=== PATIENT | male | born 1945 | race Caucasian/White ===

== ENCOUNTER 2018-08-18 11:57 | Inpatient (IN) | payer MEDICARE, OTHER ==
[~2018-08-18 11:57] MED LIST: ISOVUE-370 76%-LOCM 1 ML ONE
[2018-08-18 12:44] LABS: #Eosinphils 0.2 thou/uL (0.0-0.7); #Lymphocytes 1.6 thou/uL (1.20-3.40); #Monocytes 0.7 thou/uL (0.11-0.59); #Neutrophils 7.2 thou/uL (1.40-6.50); %Basophils 0.2 % (0.0-1.0); %Eosinophils 2.2 % (0.0-10.0); %Lymphocytes 16.4 % (21.0-51.0); %Monocytes 7.3 % (0.0-10.0); %Neutrophils 73.9 % (42.0-75.0); Mean Corpuscular HGB CONC 33.2 g/dL (32.0-36.0); Mean Corpuscular Hemoglobin 32.8 pg (27.0-31.0); Mean Corpuscular Volume 98.9 fL (78.0-98.0); Mean Platelet Volume 6.5 fL (7.4-10.4); Platelet Count 281 thou/uL (130-400); RBC Distribution Width 11.7 % (11.5-14.5); Red Blood Cell (RBC) Count 4.27 mill/uL (4.70-6.10); White Blood Cell (WBC) Count 9.7 thou/uL (4.8-10.8)
[2018-08-18 12:53] LABS: PTT 36.6 SEC (22.9-36.1); Prothrombin Time 13.2 SEC (12.0-14.7)
[2018-08-18 13:04] LABS: ALT (SGPT) Less than 7 U/L (8-55); AST (SGOT) 8 U/L (5-34); Albumin 3.8 g/dL (3.4-4.8); Alkaline Phosphatase 83 U/L (40-150); Anion Gap 11 mmol/L (10-20); BUN (Urea Nitrogen) 15 mg/dL (8.4-25.7); Bilirubin, Total 0.3 mg/dL (0.2-1.2); Calc. Creatinine Clearance 0 mL/min (70-130); Calcium 9.6 mg/dL (7.8-10.44); Carbon Dioxide 22 mmol/L (23-31); Chloride 109 mmol/L (98-107); Estimated GFR-MDRD 89; Globulin 3.2 g/dL (2.4-3.5); Glucose 114 mg/dL (83-110); Potassium 4.1 mmol/L (3.5-5.1); Sodium 138 mmol/L (136-145)
--- NOTE | 2018-08-18 13:43 | CT ---
CT BRAIN: Date: 08/18/18 PROVIDED CLINICAL HISTORY: Evidence for stroke leaning to right side, dementia, Parkinson's. FINDINGS: No comparisons. The ventricular system appears normal in size and morphology. There is no evidence for intracranial h emorrhage or mass effect. The extracranial soft tissues and osseous structures demonstrate no acute a bnormality. Partially visualized mucus retention cyst right maxillary sinus. IMPRESSION: No evidence for intracranial hemorrhage or mass effect. POS: DIONNE
--- NOTE | 2018-08-18 14:07 | CT ---
CT ANGIOGRAM BRAIN WITH IV CONTRAST AND 3D MIP RECONSTRUCTIONS CT ANGIOGRAM GREAT VESSELS NECK WITH IV CONTRAST AND 3D MIP RECONSTRUCTIONS: Date: 08/18/18 PROVIDED CLINICAL HISTORY: Evidence for stroke. FINDINGS: There is a normal three vessel configuration of the great vessels at the arch. There is minimal ather osclerotic plaque present involving the proximal left internal carotid artery. There is no evidence f or significant stenosis involving the common carotid, innominate, subclavian, internal carotid, or ve rtebral arteries. CT angiogram of brain demonstrates no evidence for focal vessel stenosis, branch occlusion, or aneury sm. IMPRESSION: 1. No significant stenosis involving either internal carotid artery. 2. Normal CT angiogram of brain. Findings communicated to Dr. Fox in the emergency department at 1257 hours on 08/18/18. CODE CR. POS: DIONNE
--- NOTE | 2018-08-18 14:37 | PDOC.FPRHP ---
- History of Present Illness Chief Complaint: suspected stroke History of Present Illness: 73 yo M with HTN, HLD, Parkinson's disease presented to the ED for suspected stroke. He has Bipolar disorder and parkinson's and lives at [facility]. This morning at 11AM he was was having a haircut when staff noticed sudden onset of R facial droop, right sided body weakness and speech slurring. The patient says he didn't notice anything different at the time. In the ED he was within timeframe of tPA but after discussion with his brother (PREET ) they decided to forgo this option. Upon talking with patient and brother he was back to baseline, with no R sided weakness or facial droop. ROS negative otherwise. ED Course: ASA - Allergies/Adverse Reactions Allergies Allergy/AdvReac Type Severity Reaction Status Date / Time No Known Allergies Allergy Verified 08/18/18 17:21 - Home Medications Medication Instructions Recorded Confirmed Type Amlodipine Besylate [amLODIPine 2.5 mg PO DAILY 08/18/18 08/18/18 History Besylate] Carbidopa/Levodopa [Parcopa 25/100] 2 tab PO QID 08/18/18 08/18/18 History Divalproex Sodium [Divalproex 500 mg PO 199908/18/18 08/18/18 History Sodium ER] Donepezil HCl [Aricept] 10 mg PO HS 08/18/18 08/18/18 History LORazepam [Lorazepam] 1 mg PO BID 08/18/18 08/18/18 History Byng Carbonate 300 mg PO BID 08/18/18 08/18/18 History Mirtazapine 45 mg PO 08/18/18 08/18/18 History OLANZapine [Olanzapine] 10 mg PO 199908/18/18 08/18/18 History Propranolol HCl 20 mg PO TID 08/18/18 08/18/18 History - History PMHx:Parkinsons, Anxiety, Bipolar disorder, PSHx: unknown FHx: non contributory Social: Denies t/e/d - Review of Systems General: denies: fever/chills, weight/appetite/sleep changes, night sweats Eyes: denies: eye pain, vision changes ENT: denies: nasal congestion, rhinorrhea Respiratory: denies: cough, congestion, shortness of breath Cardiovascular: denies: chest pain, palpitation, paroxysmal nocturnal dyspnea, orthopnea Gastrointestinal: denies: nausea, vomiting, diarrhea, constipation, GI bleeding Genitourinary: denies: incontinence, dysuria Skin: denies: rashes Musculoskeletal: denies: pain, tenderness, stiffness Neurological: denies: numbness, syncope, seizure, weakness Psychological: reports: anxiety. denies: depression - Vital signs BP: [98.7] HR: [74] RR: [20] Tmax: [98.7] Pox: [95]% on [RA] Wt: [28kg] - Physical Exam Constitutional: NAD, awake, alert and oriented HEENT: normocephalic and atraumatic, PERRLA, EOMI, conjunctiva clear, no scleral icterus, grossly normal vision, MMM -HEENT: yellow plaque on tongue Neck: supple, FROM Chest: no-tender to palpation, no lesions Heart: RRR, normal S1/S2, no murmurs/rubs/gallops Lungs: CTAB, no respiratory distress, no wheezing, no retractions Abdomen: soft, non-tender, bowel sounds present Musculoskeletal: normal structure, normal tone, ROM grossly normal -Musculoskeletal: BLE 4/5 strength Neurological: no focal deficit, CN II-XII intact, normal sensation Skin: no rash/lesions, good turgor, capillary refill <2 seconds Heme/Lymphatic: no unusual bruising or bleeding, no purpura, no petechia Psychiatric: intact recent and remote memory -Psychiatric: anxious affect, slow to respond but A&O x3 FMR H&P: Results - Labs Result Diagrams: 08/18/18 12:26 08/18/18 12:26 Lab results: WBC 9.7 thou/uL (4.8-10.8) 08/18/18 12:26 Hgb 14.0 g/dL (14.0-18.0) 08/18/18 12:26 Hct 42.2 % (42.0-52.0) 08/18/18 12:26 MCV 98.9 fL (78.0-98.0) H 08/18/18 12:26 Plt Count 281 thou/uL (130-400) 08/18/18 12:26 Neutrophils % 73.9 % (42.0-75.0) 08/18/18 12:26 Sodium 138 mmol/L (136-145) 08/18/18 12:26 Potassium 4.1 mmol/L (3.5-5.1) 08/18/18 12:26 Chloride 109 mmol/L (98-107) H 08/18/18 12:26 Carbon Dioxide 22 mmol/L (23-31) L 08/18/18 12:26 BUN 15 mg/dL (8.4-25.7) 08/18/18 12:26 Creatinine 0.85 mg/dL (0.7-1.3) 08/18/18 12:26 Glucose 114 mg/dL (83-110) H 08/18/18 12:26 Calcium 9.6 mg/dL (7.8-10.44) 08/18/18 12:26 Total Bilirubin 0.3 mg/dL (0.2-1.2) 08/18/18 12:26 AST 8 U/L (5-34) 08/18/18 12:26 ALT Less than 7 U/L (8-55) L 08/18/18 12:26 Alkaline Phosphatase 83 U/L (40-150) 08/18/18 12:26 B-Natriuretic Peptide 25.9 pg/mL (0-100) 08/18/18 12:26 Serum Total Protein 7.0 g/dL (5.8-8.1) 08/18/18 12:26 Albumin 3.8 g/dL (3.4-4.8) 08/18/18 12:26 - EKG Interpretation EKG: NSR - Radiology Interpretation CT scan - pelvis Status: report reviewed by me Other Status: report reviewed by me Additional comment: CT angio head and neck: wnl FMR H&P: A/P - Problem List (1) TIA (transient ischemic attack) Current Visit: Yes Status: Acute Code(s): G45.9 - TRANSIENT CEREBRAL ISCHEMIC ATTACK, UNSPECIFIED (2) Parkinsons disease Current Visit: Yes Status: Acute Code(s): G20 - PARKINSON'S DISEASE (3) Bipolar 1 disorder Current Visit: Yes Status: Acute Code(s): F31.9 - BIPOLAR DISORDER, UNSPECIFIED (4) Hypertension Current Visit: Yes Status: Acute Code(s): I10 - ESSENTIAL (PRIMARY) HYPERTENSION - Plan TIA r/o CVA -CTAngio: negative for occlusoin -ASA, high intensity statin -TTE -PT/OT/ST -NPO until passes bedside swallow test -risk stratify with A1c and FLP -MRI brain to r/o CVA Parkinsons vs Frontotemporal vs. lewy body dementia vs. alzheimers -resume home carbidopa/levodopa -home donaepezil HTN -resume home amlodipine Bioplar Disorder Type I -resume home lithium -home olanzapine -home divalproex -check lithium level Anxiety -resume home ativan Depression -home mirtazepine dvt ppx: SCD Disucssed with Dr. Riojas FMR H&P: Upper Level - Pertinent history 73 yo WM PMH Bipolar disorder in remission, HTN, and Parkinson's disease with mild underlying dementia. Presents from assisted living facility with new onset right sided weakness, slurred speech, and AMS that started at 1100 today. Patient's brother and mPOA/next of kin present at bedside and stated that at the time of our exam, patient has completely returned to baseline. No hx prior CVA. Mother of massive CVA and want observed for eval/medication optimization. States patient is A&Ox4 at baseline but unable to perform all ADLs and is living in assisted living community. Offered TPa in ER but denied given underlying dementia and Parkinson's disease. ER: labs, EKG, CT brain, CTA head and neck - Pertinent findings Vitals: WNL GEN: NAD, speech difficult to understand (baseline per brother), A&O x4. CV: RRR, no murmur Pulm: CTA-B, normal effort Neuro: 5/5 strength all major muscle groups, 2/4 DTR, normal sensation EKG: NSR, no abnormalities CT Brain: no acute processes CTA- Head and Neck: No stenosis - Plan Date/Time: 08/18/18 1433 I, Jaden Crawley MD, have evaluated this patient and agree with findings/plan as outlined by internet marketing consultant resident. Pertinent changes/additions are listed here. 1. TIA evaluation: MRI brain. check FLP and start statin, ASA 81 mg daily since not currently on ASA. Check A1c given atypical antipsychotic use since it can cause metabolic syndrome. Monitor on tele. neurology consult pending result of MRI 2. Parkinson's: home meds 3. Bipolar disorder: check lithium level 4. HTN: monitor. Goal BP for age and comorbidities <150/90 Diet: HH PPx: SCD, fall CODE: DNR-DNI. discussed with brother Dispo: obs, stroke, <[address] Riojas. Addendum - Attending - Attending Attestation Date/Time: 08/18/181953 I personally evaluated the patient and discussed the management with Dr. Garcia I agree with the History, Examination, Assessment and Plan documented above with any addition or exceptions noted below.
[2018-08-18] MEDS ORDERED: Aspirin Chewable 81 MG TAB ONE (15:31)
[2018-08-18 15:41] LABS: Cardiac Risk 5.4 (Less than 4.5)
[2018-08-18] MEDS ORDERED: Carbidopa/Levodopa 25-100 mg Tablet PO SCH ×3 (16:45→19:00)
--- NOTE | 2018-08-18 17:42 | PDOC.EVN ---
Event Note - Event Note Event Note: Brief admit note see resident HX PE for further detail 73 yo HTN male with parkinsonism dx , bipolar d/o and frontal lobe dementia previously diagnosed. Patient sent offer from assisted living with new onset slurred speech ,right sided facial drooping and right upper and lower extremity weakness. AT ER patient Ruled in for TPA stroke protocol but patient and family declined TPA administration. Patient at time of exam back to baseline per patients brother clinic course now more consistent with TIA will place in observation with expectant management.
[2018-08-18 18:28] VITALS: BMI 28.2
[2018-08-18] MEDS ORDERED: Aspirin 325 MG TAB PO SCH (19:15)
--- NOTE | 2018-08-18 19:49 | PDOC.EVN ---
Event Note - Event Note Event Note: Pt failed swallow study but still requested a diet and to take home med PO. Risks of diet after failed swallow study including but not limited to aspiration and pneumonia were discussed with both the patient and the brother ( PREET). Both the patient and his brother verbalized understanding of the risks and the pt stated he still desired a diet as well as his home meds. The Brother agreed and verbalized his impression that this would be congruent with the attitudes toward healthcare that the patient has had throughout his disease progression. -will add heart healthy diet and pt is cleared for PO home medications
[2018-08-18] MEDS ORDERED: OLANZapine 5 MG TAB PO SCH (20:00)
[2018-08-18] MEDS: Lorazepam 1 MG TAB PO SCH (20:33)
[2018-08-18] MEDS: Propranolol HCl 20 MG TAB PO SCH (20:37)
[2018-08-18] MEDS ORDERED: Atorvastatin Calcium 40 MG TAB PO SCH (21:00)
[2018-08-18] MEDS ORDERED: Donepezil HCl 10 MG TAB PO SCH ×2 (21:00)
[2018-08-18] MEDS ORDERED: Mirtazapine 30 MG TAB PO SCH ×2 (21:00)
[2018-08-18] MEDS ORDERED: Lorazepam 1 MG TAB PO SCH (21:00)
[2018-08-19 05:07] LABS: Anion Gap 12 mmol/L (10-20); BUN (Urea Nitrogen) 15 mg/dL (8.4-25.7); Calc. Creatinine Clearance 91 mL/min (70-130); Calcium 9.4 mg/dL (7.8-10.44); Carbon Dioxide 23 mmol/L (23-31); Chloride 109 mmol/L (98-107); Estimated GFR-MDRD 86; Glucose 102 mg/dL (83-110); Potassium 3.8 mmol/L (3.5-5.1); Sodium 140 mmol/L (136-145)
--- NOTE | 2018-08-19 05:29 | PDOC.FM ---
- Subjective Subjective: NAEO. Per brother back to baseline. Slept well. - Objective MAR Reviewed: Yes Vital Signs & Weight: Vital Signs (12 hours) Temp Pulse Resp BP Pulse Ox 08/19/18 02:39 97.7 F 71 13 118/72 94 L 08/18/18 23:20 98.7 F 75 18 100/60 92 L 08/18/18 18:21 98.5 F 66 16 126/79 95 Weight Weight 83.6 kg Result Diagrams: 08/18/18 12:26 08/19/18 04:20 Phys Exam - Physical Examination Constitutional: NAD HEENT: PERRLA, moist MMs, sclera anicteric yellow plaque on tongue Neck: no JVD, full ROM Respiratory: no wheezing, clear to auscultation bilateral Cardiovascular: RRR, no significant murmur Musculoskeletal: no edema, pulses present Neurological: moves all 4 limbs mild R lower facial droop (baseline per brother) UE: 5/5 strength, LE 4/5 (strength), reflexes intact Psychiatric: A&O x 3 Dx/Plan (1) TIA (transient ischemic attack) Code(s): G45.9 - TRANSIENT CEREBRAL ISCHEMIC ATTACK, UNSPECIFIED Status: Acute (2) Parkinsons disease Code(s): G20 - PARKINSON'S DISEASE Status: Acute (3) Bipolar 1 disorder Code(s): F31.9 - BIPOLAR DISORDER, UNSPECIFIED Status: Acute (4) Hypertension Code(s): I10 - ESSENTIAL (PRIMARY) HYPERTENSION Status: Acute - Plan Plan: 73 yo M with hx of HTN, Parkinson's disease here for TIA r/o CVA TIA r/o CVA -CTAngio: negative for occlusion in cerebral and neck aa. -ASA, high intensity statin -hold anticoagulation -TTE pending -PT/OT/ST -Did not pass bedside swallow, see event note, now on HH diet -A1c and FLP within range -MRI brain to r/o CVA Parkinsons vs Frontotemporal vs. lewy body dementia vs. alzheimers -resume home carbidopa/levodopa -home donaepezil HTN -resume home amlodipine Bioplar Disorder Type I -resume home lithium -home olanzapine -home divalproex Subtherapeutic lithium level -Last level drawn this past week was 0.8, 0.6 today -Managed by PCP, has been at this level for long time -Will not make med adjustments. Anxiety -resume home ativan Depression -home mirtazepine dvt ppx: SCD diet: HH Disucssed with Dr. Riojas Dispo: Pending TTE and brain MRI. Neuro consult pending brain MRI recs. If all negative likely home today. Discussed with Dr. Riojas Addendum - Attending - Attending Attestation Date/Time: 08/19/18 1116 I personally evaluated the patient and discussed the management with Dr. Garcia I agree with the History, Examination, Assessment and Plan documented above with any addition or exceptions noted below.Discussed plan with patient and MPOA Brother of patient Echo and MRI possible home today . Note failed swallow study all aware risk will rec continued diet as assisted living thickened soft diet.
[2018-08-19] MEDS ORDERED: Carbidopa/Levodopa 25-100 mg Tablet PO SCH ×5 (07:00→19:00)
[2018-08-19 07:53] VITALS: TEMP 98.1
[2018-08-19] MEDS ORDERED: Aspirin Chewable 81 MG TAB PO SCH (09:00)
[2018-08-19] MEDS ORDERED: Amlodipine 10 MG TAB PO SCH (09:00)
[2018-08-19] MEDS ORDERED: Aspirin 325 MG TAB PO SCH (09:00)
[2018-08-19] MEDS ORDERED: OLANZapine 5 MG TAB PO SCH (09:00)
[2018-08-19] MEDS: Lorazepam 1 MG TAB PO SCH (09:58)
[2018-08-19] MEDS: Propranolol HCl 20 MG TAB PO SCH (09:58)
[2018-08-19 11:55] VITALS: BP 109/64
--- NOTE | 2018-08-19 12:13 | MRI ---
MRI BRAIN: Date: 08/19/18 PROVIDED CLINICAL HISTORY: Stroke. FINDINGS: The ventricular system appears normal in size and morphology. There is no evidence for intracranial h emorrhage or mass effect. There is no evidence for restricted diffusion to suggest recent infarction. Minimal chronic microvascular ischemic change is noted. Appropriate flow-voids are seen within the m ajor intracranial vessels. Mucus retention cyst formation right maxillary sinus with mucosal thickeni ng involving ethmoid air cells and maxillary sinuses. The extracranial soft tissues and calvarial mar row signal appear otherwise unremarkable. IMPRESSION: No evidence for an acute intracranial abnormality. POS: MERVAT
--- NOTE | 2018-08-19 19:05 | DIS ---
DATE OF ADMISSION: 08/18/2018 DATE OF DISCHARGE: 08/19/2018 RESIDENT: Sulma Garcia MD, PGY-1 ADMITTING AND DISCHARGE ATTENDING: Bereket Riojas MD CONSULT: None. PROCEDURES: None. IMAGIN. Brain MRI: Minimal chronic microvascular ischemic changes noted. No evidence for ICH or mass effect. No evidence for acute intracranial abnormality. 2. CT [place] angiography: No significant stenosis involving either internal carotid artery, normal CT angiogram of brain. PRIMARY DIAGNOSIS: Transient ischemic attack. SECONDARY DIAGNOSES: 1. Parkinson disease. 2. 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 3. Bipolar 1 disorder. 4. Hypertension. 5. Anxiety. DISCHARGE MEDICATIONS: 1. Amlodipine 2.5 mg p.o. daily. 2. Mirtazapine 45 mg p.o. at bedtime. 3. Lorazepam 1 mg p.o. b.i.d. 4. Propranolol 20 mg p.o. t.i.d. 5. [place] 300 mg p.o. b.i.d. 6. Aricept 10 mg p.o. at bedtime. 7. Carbidopa/levodopa (25/100) 2 tablets p.o. q.i.d. 8. Olanzapine 10 mg p.o. daily. 9. Divalproex sodium ER 500 mg p.o. daily. 10. Aspirin 325 mg p.o. daily. 11. Atorvastatin 40 mg p.o. at bedtime. HISTORY OF PRESENT ILLNESS/HOSPITAL COURSE: A 73-year-old male with history of hypertension, was brought in from assisted living for a stroke, CVA rule out. He has no prior history of TIA or stroke. At 8 a.m. that morning, he was up in his bed when staff noticed acute onset of right facial droop with right upper and lower extremity weakness. He was brought to the ED and was within the time frame of tPA. However, after discussion with his brother, who is the POA, it was decided that no further aggressive intervention would be had as that would be the patient's desire. Actually by the time we evaluated him he was back to baseline neurologically. CT head was negative for hemorrhagic stroke. CT angio [place] and internal carotids were negative for any occlusion. Labs to risk stratify the patient were all within normal limits as well too with a normal A1c and lipid panel. Pt was admitted for new onset TIA, CVA rule out. MRI brain was negative for any acute vascular changes. The patient was started on aspirin and a high-intensity statin with instruction to continue this upon discharge. Currently, etiology of TIA is unknown; however, transthoracic echo is still pending. We will call brother results of this. Should this show have any findings, we will advise to have outpatient cardiac workup. Of note, the patient did not pass bedside swallow test. However, after discussion with his brother of aspiration risk , it was decided that the patient would still want to be continued on a diet. He has chronically had issues with swallowing and has already had a modified barium, speech study. The patient's brother understood the risk of aspiration. Please see event note for further details. DISPOSITION: Stable. DISCHARGE INSTRUCTIONS: 1. Location. Assisted Living at [facility]. 2. Diet. Resume diet at assisted living facility. 3. Activity. Ad aniyah. FOLLOWUP: 1. Please follow up with PCP, Dr. Gonzalez in 7 days. 2. Please also anticipate that concerning physicians will be calling you with results of transthoracic echo. Job ID: [id number] [id number]
== END 2018-08-19 13:28 | DRG 69 ==
LOC: ERS 11:57 → OBSVTOIN 14:35 → INTOOBSV 14:35 → ERHOLD 14:35 → 2SW 17:22
PROVIDERS: ADMIT Family Medicine; ATTEND Family Medicine
DX: G45.9 Transient cerebral ischemic attack, unspecified (principal); G20 Parkinson's disease; F31.9 Bipolar disorder, unspecified; I10 Essential (primary) hypertension; F41.9 Anxiety disorder, unspecified; Z66 Do not resuscitate
CPT/HCPCS: 36415; 36416; 70450; 70496; 70498; 70551; 80048; 80053; 80061; 80178; 83036; 83880; 84443; 84484; 85025; 85610; 85730; 86850; 86900; 86901; 93005; 93306; Q9966

== ENCOUNTER 2022-11-20 12:19 | Emergency (ER) | payer MEDICARE, OTHER ==
[2022-11-20 14:11] LABS: Bilirubin Negative (Negative); Blood, Urine Negative (Negative); Clarity Clear (Clear); Glucose, Urine (Dipstick) Normal (Negative); Ketone, Urine Negative (Negative); Leukocyte Negative Leu/uL (Negative); Nitrite Negative (Negative); Protein, Urine (Dipstick) 10 mg/dL (Neg-Trace); Specific Gravity, Urine 1.017 (1.002-1.036); Urobilinogen Normal mg/dL (Less than 2); pH, Urine 6.5 (5.0-9.0)
[2022-11-20 14:22] LABS: #Eosinphils 0.3 thou/uL (0.0-0.7); #Lymphocytes 1.6 thou/uL (1.20-3.40); #Monocytes 0.8 thou/uL (0.11-0.59); #Neutrophils 9.8 thou/uL (1.40-6.50); %Basophils 0.3 % (0.0-1.0); %Eosinophils 2.5 % (0.0-10.0); %Lymphocytes 12.5 % (21.0-51.0); %Monocytes 6.3 % (0.0-10.0); %Neutrophils 78.4 % (42.0-75.0); Hemoglobin 16.6 g/dL (14.0-18.0); Mean Corpuscular Hemoglobin 32.8 pg (27.0-31.0); Mean Corpuscular Volume 96.4 fl (78.0-98.0); Platelet Count 202 10x3/uL (130-400); RBC Distribution Width 11.7 % (11.5-14.5); Red Blood Cell (RBC) Count 5.07 mill/uL (4.70-6.10); White Blood Cell (WBC) Count 12.5 10x3/uL (4.8-10.8)
[2022-11-20 14:47] LABS: ALT (SGPT) Less than 7 U/L (8-55); AST (SGOT) 8 U/L (5-34); Albumin 4.2 g/dL (3.4-4.8); Alkaline Phosphatase 82 U/L (40-110); Anion Gap 14 mmol/L (10-20); BUN (Urea Nitrogen) 18 mg/dL (8.4-25.7); Bilirubin, Total 0.5 mg/dL (0.2-1.2); Calc. Creatinine Clearance 0 mL/min (70-130); Calcium 9.6 mg/dL (7.8-10.44); Carbon Dioxide 21 mmol/L (23-31); Chloride 109 mmol/L (98-107); Estimated GFR 78; Glucose 103 mg/dL (83-110); Potassium 4.3 mmol/L (3.5-5.1); Protein, Total 7.2 g/dL (5.8-8.1); Sodium 140 mmol/L (136-145)
== END 2022-11-20 15:25 | disposition home or self-care (01) ==
LOC: ERS 12:19
DX: R41.82 Altered mental status, unspecified (principal); I10 Essential (primary) hypertension; G20 Parkinson's disease; G30.9 Alzheimer's disease, unspecified; F02.80 Dementia in other diseases classified elsewhere, unspecified severity, without behavioral disturbance, psychotic disturbance, mood disturbance, and anxiety; Z79.82 Long term (current) use of aspirin; Z79.899 Other long term (current) drug therapy
CPT/HCPCS: 36415; 36416; 70450; 80053; 81003; 84146; 84484; 85025; 93005

== ENCOUNTER 2023-10-29 13:05 | Emergency (ER) | payer MEDICARE, OTHER ==
[2023-10-29 14:25] LABS: #Basophils 0.05 10x3/uL (0.0-0.2); %Basophils 0.4 % (0.0-1.0); %Eosinophils 2.5 % (0.0-10.0); %Lymphocytes 16.9 % (21.0-51.0); %Monocytes 8.9 % (0.0-10.0); %Neutrophils 70.2 % (42.0-75.0); Hematocrit 44.3 % (42.0-52.0); Hemoglobin 15.1 g/dL (14.0-18.0); Mean Corpuscular HGB CONC 34.1 g/dL (32.0-36.0); Mean Corpuscular Hemoglobin 32.4 pg (27.0-31.0); Mean Corpuscular Volume 95.1 fL (78.0-98.0); Mean Platelet Volume 9.3 fL (7.4-10.4); Platelet Count 253 10x3/uL (130-400); RBC Distribution Width 13.2 % (11.5-14.5); Red Blood Cell (RBC) Count 4.66 mill/uL (4.70-6.10)
[2023-10-29 14:28] LABS: Bacteria/HPF None Seen HPF (None Seen); Bilirubin Negative (Negative); Blood, Urine Negative (Negative); CAUTI Indications for Culture Alt mental st,lethar; Clarity Clear (Clear); Glucose, Urine (Dipstick) Normal (Negative); Ketone, Urine Negative (Negative); Leukocyte Negative Leu/uL (Negative); Mucous/LPF Rare LPF (<2+); Nitrite Negative (Negative); Protein, Urine (Dipstick) Negative (Neg-Trace); RBC/HPF 0-3 HPF (0-3); Specific Gravity, Urine 1.019 (1.002-1.036); Squamous Epithelial None Seen HPF (0-3); Urobilinogen Normal mg/dL (Less than 2); WBC/HPF 0-3 HPF (0-3)
[2023-10-29 14:32] LABS: Urine Culture Reflex No No
[2023-10-29 14:45] LABS: Influenza A by NAA Not Detected (NotDetected); Influenza B by NAA Not Detected (NotDetected); SARS-CoV-2 NAA Rapid Test Not Detected (NotDetected)
[2023-10-29 14:47] LABS: ALT (SGPT) Less than 7 U/L (8-55); AST (SGOT) 11 U/L (5-34); Alkaline Phosphatase 87 U/L (40-110); Anion Gap 11 mmol/L (10-20); BUN (Urea Nitrogen) 32 mg/dL (8.4-25.7); Bilirubin, Total 0.5 mg/dL (0.2-1.2); Calc. Creatinine Clearance 0 mL/min (70-130); Calcium 9.5 mg/dL (7.8-10.44); Carbon Dioxide 22 mmol/L (23-31); Chloride 110 mmol/L (98-107); Estimated GFR 60; Globulin 2.6 g/dL (2.4-3.5); Glucose 102 mg/dL (83-110); Potassium 4.8 mmol/L (3.5-5.1); Protein, Total 6.6 g/dL (5.8-8.1); Sodium 138 mmol/L (136-145)
[2023-10-29 14:49] LABS: Troponin I Less than 0.010 ng/mL (< 0.028)
== END 2023-10-29 15:45 | disposition home or self-care (01) ==
LOC: ERS 13:05
DX: G20.A1 Parkinson's disease without dyskinesia, without mention of fluctuations (principal); F02.80 Dementia in other diseases classified elsewhere, unspecified severity, without behavioral disturbance, psychotic disturbance, mood disturbance, and anxiety; I10 Essential (primary) hypertension; G30.9 Alzheimer's disease, unspecified; Z79.82 Long term (current) use of aspirin; Z79.899 Other long term (current) drug therapy
CPT/HCPCS: 0240U; 70450; 71045; 80053; 81001; 84484; 85025; 93005; 36415